=== PATIENT | female | born 1985 | race Caucasian/White ===

== ENCOUNTER 2021-04-22 14:08 | Emergency (ER) | payer OTHER ==
[2021-04-22 15:34] LABS: BASO % 0.3 % (0.0-1.0); EOS # 0.2 10^3/uL (0.0-0.5); EOS % 2.4 % (0.0-3.0); HEMATOCRIT 41.5 % (36.0-47.0); HEMOGLOBIN 13.6 g/dl (12.0-15.5); LYMPH # 1.6 10^3/uL (1.5-5.0); MEAN CORPUSCULAR HEMOGLOBIN 30.2 pg (27.0-33.0); MEAN CORPUSCULAR HGB CONC 32.8 g/dl (32.0-36.5); MEAN CORPUSCULAR VOLUME 92.2 fl (80.0-96.0); MONO # 0.5 10^3/uL (0.0-0.8); MONO % 6.8 % (2.0-8.0); NEUTROPHILS # 4.9 10^3/uL (1.5-8.5); NEUTROPHILS % 67.9 % (36.0-66.0); PLATELET COUNT, AUTOMATED 273 10^3/uL (150-450); WHITE BLOOD COUNT 7.2 10^3/uL (4.0-10.0)
[2021-04-22 16:03] LABS: ALBUMIN 3.8 GM/DL (3.2-5.2); ALT/SGPT 140 U/L (12-78); BILIRUBIN,DIRECT < 0.1 MG/DL (0.0-0.2); BILIRUBIN,TOTAL 0.3 MG/DL (0.2-1.0); FREE T4 1.07 NG/DL (0.76-1.46); LIPASE 82 U/L (73-393); TOTAL PROTEIN 7.2 GM/DL (6.4-8.2)
[2021-04-22] MEDS ORDERED: ISOVUE-370 76% 100ML VIAL As Ordered ONE (16:07)
--- NOTE | 2021-04-22 16:14 | REP ---
INDICATION: CHEST PAIN. COMPARISON: None. TECHNIQUE: Portable FINDINGS: The technique utilized in obtaining the radiograph has magnified the cardiac silhouette and accentuated the interstitial markings. The superior mediastinal structures are midline. The cardiac silhouette is unremarkable in size, shape, and position. The diaphragmatic surfaces of the lungs are regular, and the costophrenic angles are clear. The pulmonary beatty are clear. The imaged osseous structures are intact. IMPRESSION: There is no acute cardiopulmonary disease. <Electronically signed by Simeon More > 04/22/21 [id number]
--- NOTE | 2021-04-22 16:35 | REP ---
INDICATION: chest pain, poc complete and normal, neg hcg COMPARISON: None. TECHNIQUE: CT angiography of the chest attention pulmonary arteries after the intravenous administration of 75 cc Isovue 370. FINDINGS: There is good visualization of the pulmonary arterial vasculature. There are no focal filling defects present that would be considered consistent with acute pulmonary emboli. There is no mediastinal or hilar adenopathy. There are no pleural or pericardial effusions. The imaged upper abdomen and imaged osseous structures are within normal limits. Evaluation of the lung beatty shows respiratory motion artifact obscuring the fine detail particularly in the lung bases. There are no abnormal nodules, masses, or opacities. IMPRESSION: CT findings are within normal limits. <Electronically signed by Simeon More > 04/22/21 [id number]
[2021-04-22 17:15] VITALS: BP 112/78
[2021-04-22] MEDS ORDERED: OMEP-221 PO (17:24)
[2021-04-22] MEDS ORDERED: OXYC1TAB23 PO (17:24)
[2021-04-22] MEDS ORDERED: FAMO20TA5 PO (17:24)
[2021-04-22] MEDS ORDERED: PROP10TA56 PO (17:24)
[2021-04-22] MEDS ORDERED: METF-838 PO (17:24)
--- NOTE | 2021-04-22 19:46 | ECGEPIP ---
[facility] - ED Test Date: 2021-04-22 Pat Name: JOSEPHINE GOTTLIEB Department: Room: - Gender: Female Information Technology Officer: MARCIN : 1985 Requested By: Karin Yañez Order Number: [id number] Reading MD: Karin Yañez Measurements Intervals Bend Rate: 75 P: 52 OK: 156 QRS: 43 QRSD: 76 T: 31 QT: 374 QTc: 417 Interpretive Statements Normal sinus rhythm Nonspecific T wave abnormality anteroseptal leads vs ischemia CLINICAL CORRELATION ADVISED Electronically Signed on 04-22-2021 19:46:22 EST by Karin Yañez
== END 2021-04-22 17:38 | disposition home or self-care (01) ==
LOC: EDBD 14:08 → M ED 14:08
DX: R07.9 Chest pain, unspecified (principal); R00.2 Palpitations; R94.5 Abnormal results of liver function studies; E11.9 Type 2 diabetes mellitus without complications; Z79.84 Long term (current) use of oral hypoglycemic drugs; Z79.899 Other long term (current) drug therapy
CPT/HCPCS: 71045; 71275; 80047; 80076; 83690; 84439; 84443; 84702; 85025; 93005; 93041; 94760; 99285; Q9967